=== PATIENT | male | born 1965 | race African-American/Black ===

== ENCOUNTER 2018-10-11 05:23 | Inpatient (IN) | payer MEDICARE, OTHER ==
[~2018-10-11] VITALS: Ht 177.8 cm; Wt 61.7 kg
[~2018-10-11 05:23] MED LIST: ALBUTEROL; ATOR-2 PO; CHOL100034; CLON0.1T14; COM10; DIPHENHYDRAMINE HCL; DOCUSATE PO; FERR325T30; FERR325T35; ISOS60TA; LABE300T3; LORA0.5T2; MEGE40TA2; METO10TA3; NIFE60TA94; ONDA4TAB50; OXYC-579; OXYC-662; PANT40TA4; PRED5TAB; SIRO1TAB4; SUMA50TA16; TERA10CA4
[2018-10-11 06:05] LABS: BASOPHILS % 0.9 % (0.0-2.0); EOSINOPHILS % 1.1 % (0.0-5.0); HEMATOCRIT. 30.6 % (42.0-52.0); HEMOGLOBIN. 9.7 g/dL (14.0-18.0); LYMPHOCYTES % 17.6 % (20.0-50.0); MEAN CORPUSCULAR HEMOGLOBIN 30.6 pg (28.0-32.0); MEAN CORPUSCULAR VOLUME 96.1 fL (80.0-94.0); MEAN PLATELET VOLUME 8.1 fl (7.4-10.4); NEUTROPHILS % 69.4 % (40.0-76.0); PLATELET 212 x1000/uL (130-400); RED BLOOD CELL COUNT 3.19 mill/uL (4.7-6.1); RED CELL DISTRIBUTION WIDTH 19.3 % (11.6-14.6)
[2018-10-11 06:13] LABS: CHLORIDE 99 mEq/L (98-107)
[2018-10-11] MEDS ORDERED: MORPHINE SULFATE 4 MG/ML CPJ (NOT FOR IM USE) IV STA (06:17)
[2018-10-11] MEDS ORDERED: FUROSEMIDE 100MG/10ML VIAL IV STA (06:25)
[2018-10-11] MEDS ORDERED: ONDANSETRON HCL 4MG/2ML INJ IV STA (06:27)
[2018-10-11] MEDS ORDERED: SODIUM BICARBONATE 8.4% 1 MEQ/ML 50ML SYR IV ONE (06:30)
[2018-10-11] MEDS ORDERED: INSULIN REGULAR (HUMULIN R) 300UNITS/3ML IV ONE (06:30)
[2018-10-11] MEDS ORDERED: CALCIUM CHLORIDE 1GM/10ML SYR IV ONE (06:30)
[2018-10-11] MEDS ORDERED: DEXTROSE 50% WATER 50ML SYRINGE IV ONE (06:30)
[2018-10-11] MEDS ORDERED: ALBUTEROL (0.083%) 2.5MG/3ML NEB HHN ONE (06:30)
[2018-10-11 07:03] LABS: BG BASE EXCESS 1.6 mmol/L (-2.0-2.0); BG CARBOXYHEMOGLOBIN 3.3 % (0.5-1.5); BG DEOXYHEMOGLOBIN 0.9 % (0.0-5.0); BG FRACTION INSPIRED OXYGEN 100; BG HCO3 ACT 25.9 mmol/L (22.0-26.0); BG METHEMOGLOBIN 0.4 % (0.0-1.5); BG OXYGEN SATURATION 99.1 % (92.0-98.5); BG OXYHEMOGLOBIN 95.4 % (94.0-97.0); BG PCO2 39.7 mmHg (35.0-45.0); BG PH 7.433 (7.350-7.450); BG PO2 253.6 mmHg (75.0-100.0); BG SAMPLE SITE RIGHT BRACHIAL; BG TOTAL HEMOGLOBIN 8.8 g/dL (12.0-18.0); BG VENT MODE MASK - NRB
[2018-10-11] MEDS ORDERED: CLONIDINE 0.1MG TABLET PO PRN (07:30)
[2018-10-11] MEDS ORDERED: MAGNESIUM/ALUMINUM HYDROXIDE/SIMETHICONE 30ML UDC PO PRN (07:30)
[2018-10-11] MEDS ORDERED: HYDROCODONE/ACETAMINOPHEN 10/325MG TABLET PO PRN (07:30)
[2018-10-11] MEDS ORDERED: ENOXAPARIN 40MG/0.4ML SYR SUBCUT SCH (07:30)
[2018-10-11] MEDS ORDERED: DIPHENHYDRAMINE 50MG/ML VIAL IV PRN ×2 (07:30→08:45)
[2018-10-11] MEDS ORDERED: ACETAMINOPHEN 325MG TABLET PO PRN (07:30)
[2018-10-11] MEDS ORDERED: GUAIFENESIN 200MG/10ML SUGAR FREE UDC PO PRN (07:30)
[2018-10-11] MEDS ORDERED: HYDRALAZINE 20MG/ML VIAL IV PRN (07:30)
[2018-10-11] MEDS ORDERED: DOCUSATE SODIUM 100MG CAPSULE PO PRN (07:30)
[2018-10-11] MEDS ORDERED: LORAZEPAM 2MG/ML CPJ IV PRN (07:30)
[2018-10-11] MEDS: IPRATROPIUM/ALBUTEROL 0.5-3(2.5)MG/3ML NEB INH PRN (08:00)
[2018-10-11] MEDS ORDERED: SODIUM POLYSTYRENE SULFONATE 15 G/60 ML BOT PO NR (08:45)
[2018-10-11] MEDS ORDERED: LIDOCAINE HCL 1% 20ML VIAL (Pyxis) INJ INFIL ONE (09:15)
[2018-10-11 09:20] VITALS: BP 147/68
[2018-10-11] MEDS ORDERED: LIDOCAINE HCL/PF 1% 10 MG/ML 5ML VIAL IJ NR (09:30)
[2018-10-11] MEDS: ENOXAPARIN 30MG/0.3ML SYR SUBCUT SCH (11:05)
[2018-10-11] MEDS: ASPIRIN 81MG EC TABLET PO SCH (11:05)
[2018-10-11 12:00] VITALS: BP 146/75
[2018-10-11 13:00] VITALS: BP 147/68
[2018-10-11] MEDS: SODIUM CHLORIDE 0.9% INJ 3ML FLUSH IVF SCH ×2 (14:35→21:36)
[2018-10-11] MEDS: HYDROMORPHONE HCL/PF 2MG/ML CPJ IV PRN ×2 (14:37→21:35)
[2018-10-11 16:02] VITALS: BP 136/69
[2018-10-11] MEDS ORDERED: EPOETIN ALFA 4000UNITS/ML VIAL SUBCUT SCH (21:00)
[2018-10-12 06:09] LABS: BASOPHILS % 0.7 % (0.0-2.0); EOSINOPHILS % 2.3 % (0.0-5.0); HEMOGLOBIN. 8.5 g/dL (14.0-18.0); LYMPHOCYTES % 14.6 % (20.0-50.0); MEAN CORPUSCULAR HEMOGLOBIN 30.9 pg (28.0-32.0); MEAN CORPUSCULAR VOLUME 94.6 fL (80.0-94.0); MEAN PLATELET VOLUME 8.2 fl (7.4-10.4); MONOCYTES % 10.2 % (2.0-8.0); NEUTROPHILS % 72.2 % (40.0-76.0); PLATELET 189 x1000/uL (130-400); RED BLOOD CELL COUNT 2.75 mill/uL (4.7-6.1); RED CELL DISTRIBUTION WIDTH 18.4 % (11.6-14.6)
[2018-10-12 06:19] LABS: CHLORIDE 100 mEq/L (98-107)
[2018-10-12 06:31] LABS: CREATINE KINASE 75 IU/L (39-308); CREATINE KINASE MB FRACTION 1.1 ng/mL (0.5-3.6)
[2018-10-12 06:32] LABS: HDL CHOLESTEROL 36 mg/dL (40-59)
[2018-10-12 06:33] LABS: LDL CHOLESTEROL 33 mg/dL (5-100)
[2018-10-12 06:35] LABS: PHOSPHORUS 3.3 mg/dL (2.5-4.9)
[2018-10-12] MEDS: SODIUM CHLORIDE 0.9% INJ 3ML FLUSH IVF SCH ×3 (06:53→22:46)
[2018-10-12 08:00] VITALS: BP 121/64
[2018-10-12] MEDS: ASPIRIN 81MG EC TABLET PO SCH (08:31)
[2018-10-12] MEDS: ENOXAPARIN 30MG/0.3ML SYR SUBCUT SCH (08:32)
[2018-10-12] MEDS: HYDROMORPHONE HCL/PF 2MG/ML CPJ IV PRN ×3 (08:33→22:49)
[2018-10-12 12:00] VITALS: BP 123/73
[2018-10-12 16:00] VITALS: BP 135/69
[2018-10-12] MEDS: ONDANSETRON HCL 4MG/2ML INJ IV PRN ×2 (17:39→22:47)
[2018-10-12 20:00] VITALS: BP 125/72
[2018-10-12 23:19] VITALS: BP 132/75
[2018-10-13] VITALS: BP 171/87
[2018-10-13 04:00] VITALS: BP 148/78
[2018-10-13] MEDS: IPRATROPIUM/ALBUTEROL 0.5-3(2.5)MG/3ML NEB INH PRN ×2 (05:22→12:08)
[2018-10-13] MEDS: SODIUM CHLORIDE 0.9% INJ 3ML FLUSH IVF SCH (06:12)
[2018-10-13 07:07] LABS: BASOPHILS % 0.6 % (0.0-2.0); EOSINOPHILS % 2.5 % (0.0-5.0); HEMATOCRIT. 24.9 % (42.0-52.0); LYMPHOCYTES % 16.2 % (20.0-50.0); MEAN CORPUSCULAR HEMOGLOBIN 30.6 pg (28.0-32.0); MEAN CORPUSCULAR VOLUME 94.9 fL (80.0-94.0); MEAN PLATELET VOLUME 8.1 fl (7.4-10.4); MONOCYTES % 11.8 % (2.0-8.0); NEUTROPHILS % 68.9 % (40.0-76.0); PLATELET 178 x1000/uL (130-400); RED BLOOD CELL COUNT 2.62 mill/uL (4.7-6.1); RED CELL DISTRIBUTION WIDTH 18.4 % (11.6-14.6)
[2018-10-13 08:00] VITALS: BP 124/58
[2018-10-13 08:00] LABS: PHOSPHORUS 3.5 mg/dL (2.5-4.9)
[2018-10-13] MEDS: ENOXAPARIN 30MG/0.3ML SYR SUBCUT SCH (09:00)
[2018-10-13] MEDS: ASPIRIN 81MG EC TABLET PO SCH (09:01)
[2018-10-13] MEDS: HYDROMORPHONE HCL/PF 2MG/ML CPJ IV PRN (09:01)
[2018-10-13] MEDS: ONDANSETRON HCL 4MG/2ML INJ IV PRN (11:21)
[2018-10-13 11:28] VITALS: BP 124/58
[2018-10-13 12:00] VITALS: BP 140/75
== END 2018-10-13 13:15 | disposition home or self-care (01) | DRG 640 ==
LOC: ER 05:23 → 8WST 06:33 → EDBEDREQTM 06:35 → EDBEDREQ 06:35 → ENRESERV 07:59 → 7WST 17:00
PROVIDERS: ADMIT Internal Medicine; ATTEND Internal Medicine
PROC: 5A1D70Z Performance of Urinary Filtration, Intermittent, Less than 6 Hours Per Day (ICD-10-PCS; principal; 2018-10-11)
PROC: 5A1D70Z Performance of Urinary Filtration, Intermittent, Less than 6 Hours Per Day (ICD-10-PCS; 2018-10-12)
DX: E87.5 Hyperkalemia (principal); N18.6 End stage renal disease; J96.91 Respiratory failure, unspecified with hypoxia; I13.2 Hypertensive heart and chronic kidney disease with heart failure and with stage 5 chronic kidney disease, or end stage renal disease; Z94.0 Kidney transplant status; M87.88 Other osteonecrosis, other site; I25.10 Atherosclerotic heart disease of native coronary artery without angina pectoris; D64.9 Anemia, unspecified; I50.9 Heart failure, unspecified; E11.22 Type 2 diabetes mellitus with diabetic chronic kidney disease; Z95.828 Presence of other vascular implants and grafts; Z98.61 Coronary angioplasty status; Z99.2 Dependence on renal dialysis; Z87.11 Personal history of peptic ulcer disease; Z86.718 Personal history of other venous thrombosis and embolism; Z82.49 Family history of ischemic heart disease and other diseases of the circulatory system; Z79.899 Other long term (current) drug therapy; Z88.1 Allergy status to other antibiotic agents; Z88.8 Allergy status to other drugs, medicaments and biological substances
CPT/HCPCS: 36415; 36600; 71045; 80048; 80061; 82375; 82550; 82553; 82805; 83735; 83880; 84100; 84484; 93005; 94640; 96374; 96375; 99291; J0885; J1170; J1200; J1650; J1815; J1940; J2270; J2405; J3490; J7620